=== PATIENT | male | born 1965 ===

== ENCOUNTER 2017-06-28 23:54 | Inpatient (IN) | payer OTHER ==
[2017-06-29 00:26] LABS: #Basophils 0.1 thou/uL (0.0-0.2); #Lymphocytes 1.8 thou/uL (1.20-3.40); #Monocytes 1.5 thou/uL (0.11-0.59); #Neutrophils 9.9 thou/uL (1.40-6.50); %Basophils 0.5 % (0.0-1.0); %Eosinophils 0.3 % (0.0-10.0); %Lymphocytes 13.9 % (21.0-51.0); Hematocrit 42.8 % (42.0-52.0); Mean Platelet Volume 9.2 fL (7.4-10.4); Red Blood Cell (RBC) Count 5.28 mill/uL (4.70-6.10); White Blood Cell (WBC) Count 13.3 thou/uL (4.8-10.8)
[2017-06-29] MEDS ORDERED: Acetaminophen 500 MG TAB ONE (00:38)
[2017-06-29 01:07] LABS: ALT (SGPT) Less than 7 U/L (8-55); AST (SGOT) 15 U/L (5-34); Alkaline Phosphatase 57 U/L (40-150); Anion Gap 15 mmol/L (10-20); BUN (Urea Nitrogen) 23 mg/dL (8.4-25.7); Bilirubin, Total 0.3 mg/dL (0.2-1.2); Calc. Creatinine Clearance 0 mL/min (70-130); Calcium 11.1 mg/dL (7.8-10.44); Carbon Dioxide 25 mmol/L (22-29); Chloride 99 mmol/L (98-107); Estimated GFR-MDRD Greater than 90; Globulin 4.4 g/dL (2.4-3.5); Protein, Total 8.3 g/dL (6.0-8.3)
[2017-06-29] MEDS ORDERED: cefTRIAXone\\ROCEPHIN 500 MG VIAL ONE (01:23)
[2017-06-29 01:24] LABS: Bilirubin Small (Negative); Blood, Urine Negative (Negative); Glucose, Urine (Dipstick) Negative (Negative); Ketone, Urine 15 mg/dL (Negative); Nitrite Negative (Negative); Protein, Urine (Dipstick) 30 mg/dL (Neg-Trace)
[2017-06-29 01:27] LABS: Bacteria/HPF None Seen HPF (None Seen); Squamous Epithelial 0-3 HPF (0-3)
[2017-06-29 01:35] LABS: Hyaline Casts/LPF 0-3 HYALINE CAST LPF (0-3 Hyaline); Oval Fat Bodies/HPF None Seen HPF (None Seen); RBC/HPF 0-3 HPF (0-3); Renal Epithelial 0-3 HPF (0-3); Sperm/HPF None Seen HPF (None Seen); Transitional Epithelial NONE SEEN HPF (0-3); Trichomonas/HPF None Seen HPF (None Seen); Yeast-All Forms None Seen HPF (None Seen)
[2017-06-29] MEDS ORDERED: ISOVUE-370 76%-LOCM 1 ML ONE (02:06)
[2017-06-29] MEDS ORDERED: Ondansetron HCl/PF 4 MG/2 ML Vial ONE ×2 (02:46→14:12)
[2017-06-29] MEDS ORDERED: Sodium Chloride 0.9% 1,000 ML IV SCH (03:18)
[2017-06-29 04:09] VITALS: BMI 18.8
[2017-06-29] MEDS ORDERED: Potassium Chloride 40 MEQ in Sodium Chloride 0.9% 500 ML IVPB SCH (05:00)
[2017-06-29] MEDS: Sodium Chloride 0.9% 1,000 ML IV SCH ×2 (05:24→17:22)
[2017-06-29 05:52] LABS: PTT 32.8 SEC (22.9-36.1); Prothrombin Time 14.1 SEC (12.0-14.7)
[2017-06-29] MEDS: Piperacillin/Tazobactam 3.375 GM, Admixture Fee 1 EACH in Sodium Chloride 0.9% 100 ML IVPB SCH ×3 (05:59→17:22)
[2017-06-29 08:20] LABS: #Eosinphils 0.1 thou/uL (0.0-0.7); #Monocytes 1.7 thou/uL (0.11-0.59); #Neutrophils 7.6 thou/uL (1.40-6.50); %Basophils 0.2 % (0.0-1.0); %Eosinophils 0.5 % (0.0-10.0); %Lymphocytes 17.5 % (21.0-51.0); %Monocytes 14.6 % (0.0-10.0); Hematocrit 35.8 % (42.0-52.0); Mean Platelet Volume 8.2 fL (7.4-10.4); Red Blood Cell (RBC) Count 4.38 mill/uL (4.70-6.10); White Blood Cell (WBC) Count 11.3 thou/uL (4.8-10.8)
--- NOTE | 2017-06-29 08:22 | HP-2 ---
DATE OF ADMISSION: 06/29/2017 CODE STATUS: FULL. PRIMARY CARE PHYSICIAN: Dr. Pineda. ATTENDING: Dr. Robertson. RESIDENT: Lauro Calyton MD HISTORIAN: Outreach Representative who just took over the care of this patient on Friday, did not know him prior to this. Patient has moderate intellectual disability and is unable to provide any history. CHIEF COMPLAINT: Nausea and vomiting. HISTORY OF PRESENT ILLNESS: Herman Sage is a 52-year-old male with past medical history of moderate intellectual disability, chronic nephrolithiasis and history of hepatitis B, who presents with nausea and vomiting and abdominal pain. Patient recently had surgery for nephrolithiasis and was staying at some sort of a nursing facility. He recently returned to his normal place of stay where he lives and is able to get assistance on Friday. Patient's buzzle buffer states that since Friday she has not noticed that the patient has had any bowel movements. He has also been unable to tolerate any p.o. intake. They have been attempting to give him stool softeners and laxatives, but the patient has been unable to tolerate these as well. The patient's buzzle buffer states that the vomitus is nonnonbilious and nonbloody. In the ER, the patient received 2 liters of normal saline, 1 gram of ceftriaxone, 750 mg of levofloxacin, and Tylenol. PAST MEDICAL HISTORY: 1. History of hepatitis B. 2. Chronic nephrolithiasis. 3. Moderate intellectual disability. 4. Blindness. 5. Hyperlipidemia. PAST SURGICAL HISTORY: Unable to obtain full history due to unreliable historians, but patient's buzzle buffer says that patient had recent surgery for kidney stones. ALLERGIES: No known drug allergies. MEDICATIONS: 1. Combigan ophthalmic solution twice daily. 2. Depakote 500 mg oral at bedtime. 3. Lipitor 20 mg p.o. at bedtime. 4. Risperdal 3 mg p.o. at bedtime. 5. Invega 9 mg every 24 hours one tablet p.o. at night. 6. Ensure liquid nutritional supplement 3 times a day between meals. 7. Latanoprost 1 drop in each eye at bedtime. 8. Tamsulosin 0.4 mg p.o. every day. 9. Benztropine mesylate 2 mg p.o. twice daily. 10. Ammonium lactate once daily to affected feet. 11. Dorzolamide HCL 2% ophthalmic solution one drop in each eye 3 times daily. 12. Pyridium 200 mg p.o. every 8 hours p.r.n. 13. Colace 100 mg p.o. b.i.d. 14. Ferrous sulfate 325 mg p.o. daily. 15. Magnesium oxide 400 mg p.o. b.i.d. 16. Naproxen 500 mg p.o. b.i.d. FAMILY HISTORY: Unable to obtain. SOCIAL HISTORY: Per patient's buzzle buffer, the patient dips smokeless tobacco and does not use any alcohol or drugs. REVIEW OF SYSTEMS: Difficult to obtain due to poor historians; but, general: Positive for fevers, chills. Positive for appetite change because he has not been able to keep anything down and has not been as hungry and has also had a 30 -pound weight loss over the last few months. Eyes: He is blind. Denies eye pain. ENT: No nasal congestion, rhinorrhea, or sore throat. Respiratory: No cough, congestion, or shortness of breath. Cardiovascular: No chest pain, palpitations, edema, PND, or orthopnea. Gastrointestinal: Positive for nausea , vomiting, and constipation. Denies diarrhea or GI bleeding. Genitourinary: Denies dysuria, incontinence, or polyuria. Skin: Denies rashes, lesions, or jaundice. Musculoskeletal: Denies pain, tenderness, stiffness, swelling, or arthritis. Neurologic: Denies weakness, numbness, syncope, or seizures. Psychiatric: Denies anxiety or depression. PHYSICAL EXAMINATION: VITAL SIGNS: Blood pressure is 118/68, pulse 116, respiratory rate 21, T-max 100.3, pulse oximetry 97% on room air, current weight 50 kilograms. GENERAL: Patient is alert and oriented x2, in no acute distress, very thin, does not appropriately interact due to moderate intellectual disability. He is able to answer questions with sounds, but really unable to answer questions correctly with the exception of his name and where he is at. Patient's buzzle buffer states that this is his baseline. EYES: Conjunctivae within normal limits. Pupils were not reactive to light. ENT: The patient has poor dentition. Tympanic membranes are pearly thompson without bulging or erythema. Nasal mucosa and oropharynx within normal limits. NECK: Supple without lymphadenopathy or thyromegaly. CARDIOVASCULAR: Regular rate and rhythm. No murmurs or gallops. RESPIRATORY: Normal effort, no retractions. LUNGS: Clear to auscultation bilaterally. SKIN: Warm and dry without cyanosis or lesions. ABDOMEN: Distended, right-sided mass was present. Diffuse tenderness to palpation. EXTREMITIES: No cyanosis or edema. MUSCULOSKELETAL: The patient is cachectic, but has full range of motion. NEUROLOGICAL: No focal deficits. Sensation is within normal limits. LABORATORY DATA: White blood cell count 13.3, hemoglobin 13.7, hematocrit 42.8 , platelets 311. Sodium 136, potassium 3.1, chloride 99, bicarbonate 25, BUN 23 , creatinine 0.74. glucose 145, calcium 11.1, total protein 8.3, albumin 3.9, total bilirubin 0.3, AST 15, ALT less than 7, alkaline phosphatase 57, lactic acid 1.0. UA was significant for 30 protein, small leukocyte, 15 ketones, red blood cells 0 to 3, white blood cell 4 to 6. IMAGING: CT of the abdomen and pelvis findings concerning for colon adenocarcinoma with mesenteric and retroperitoneal adenopathy. ASSESSMENT AND PLAN: 1. Herman Sage is a 52-year-old male with past medical history of hepatitis B , chronic nephrolithiasis, and moderate intellectual disability, who presents with nausea, vomiting, and constipation for 5 days. 2. Large bowel obstruction secondary to mass. Consult Surgery in the morning. Start Zosyn due to elevated white blood cell count, decompression with NG tube , IV fluids at 75 mL an hour. Blood and urine cultures pending. Check CEA. 3. Colonic mass. Consult Oncology in the morning. Check CEA. We will need to get family contact information to get family involved. 4. Hypercalcemia, possibly secondary to mass and possible metastasis. IV fluids and continue to monitor. 5. Moderate intellectual disability appears to be at baseline per buzzle buffer. 6. Chronic hepatitis B. LFTs normal. Check coag studies. 7. Hyperlipidemia. We will med rec and start home medications. 8. Code status is FULL at this point. We will contact family members. Disposition and length of hospital stay: 2 to 3 days. Symptomatic medication will be provided. History and physical exam as well as management have been discussed with Dr. Robertson. HUSSEIN
--- NOTE | 2017-06-29 08:43 | RAD ---
ABDOMEN 1 VIEW: Date: 06/29/17 HISTORY: Abdominal pain. Nasogastric tube placement. FINDINGS/IMPRESSION: Nasogastric tube descends to the left upper quadrant with the proximal port at the level of the GE j unction. Please consider advancing tube approximately 5.0 cm for better positioning. Contrast within the urinary system is consistent with recent CT. There is gaseous distention of the partially visualized bowel. The pelvis is excluded from the image. POS: SVETLANA
[2017-06-29 08:53] LABS: Anion Gap 12 mmol/L (10-20); BUN (Urea Nitrogen) 19 mg/dL (8.4-25.7); Calc. Creatinine Clearance 101 mL/min (70-130); Calcium 9.4 mg/dL (7.8-10.44); Carbon Dioxide 23 mmol/L (22-29); Chloride 105 mmol/L (98-107); Estimated GFR-MDRD Greater than 90
--- NOTE | 2017-06-29 08:54 | CT ---
PRELIMINARY REPORT/[facility]/EMERGENCY AFTER HOURS PROCEDURE: EXAM: CT Abdomen and Pelvis With Intravenous Contrast CLINICAL HISTORY: 52 years old, male; Pain; Abdominal pain; Generalized; Prior surgery; Patient HX: Pt from nursing [facility] with persistent vomiting and abdominal pain. Pt with recent abd surgery last month. Gallstone SX recently TECHNIQUE: Axial computed tomography images of the abdomen and pelvis with intravenous contrast. Coronal reform atted images were created and reviewed. COMPARISON: No relevant prior studies available. FINDINGS: Limitations: Motion artifacts. Lower thorax: Bibasilar linear atelectasis. ABDOMEN: Liver: Unremarkable. No mass. Gallbladder and bile ducts: Although the clinical history stated recent cholecystectomy, the gallbla dder is still visualized. No ductal dilation. Pancreas: Unremarkable. No mass. No ductal dilation. Spleen: Unremarkable. No splenomegaly. Adrenals: Unremarkable. No mass. Kidneys and ureters: There are bilateral hypodense lesions of the kidneys of various sizes with the largest measuring 1.7 cm the right kidney. There are not clearly simple cysts and may be related to volume averaging. Followup. Stomach and bowel: There is a large heterogeneous mass of the left pelvis anteriorly measuring 6.7 x 5.6 cm. There is adjacent mesenteric fat stranding. ? Mesenteric nodule, image 52 Series 2. It appe ars to be associated with colon of splenic flexure. The bowel loop distally and is collapsed. No muc osal thickening. Appendix: No findings to suggest acute appendicitis. PELVIS: Bladder: Unremarkable. No mass. Reproductive: Unremarkable as visualized. ABDOMEN and PELVIS: Intraperitoneal space: Small amount of free fluid within the low pelvis. No free air. Bones/joints: No acute fracture. No dislocation. Soft tissues: Unremarkable. Vasculature: Unremarkable. No abdominal aortic aneurysm. Lymph nodes: There are multiple enlarged retroperitoneal nodes. There are prominent and probable enl arged mesenteric nodes. IMPRESSION: Findings are concerning for colon carcinoma with mesenteric and retroperitoneal adenopathy associate d with bowel obstruction. Findings of possible adjacent peritoneal nodules concerning for peritoneal carcinomatosis. Although the clinical history stated recent cholecystectomy, the gallbladder is sti ll visualized. Findings were discussed over the telephone with MARITZA Giron on 06/29/2017 1:36 AM POACHER OPERATOR. Thank you for allowing us to participate in the care of your patient. Dictated and Authenticated by: Alejandra Ag DO 06/29/2017 1:44 AM Central Time ([place] \T\ [place]) FINAL REPORT EMERGENCY AFTER HOURS CT ABDOMEN AND PELVIS WITH IV CONTRAST: Date: 06/29/17 Time: 0100 hours HISTORY: Abdominal pain. COMPARISON: 10/17/16. FINDINGS: Findings agree with the preliminary report by Rachel. High grade obstruction of the colon near the spl enic flexure appears to result from a heterogeneous mass, favored to arise from the colon itself. Th e left colon beyond this point is decompressed. There is bulky retroperitoneal adenopathy suggesting metastatic disease. No liver masses are apparent. POS: KAYLYNN
[2017-06-29] MEDS: Ondansetron HCl/PF 4 MG/2 ML Vial IVP PRN (09:33)
--- NOTE | 2017-06-29 10:10 | RAD ---
CHEST 1 VIEW: Date: 06/29/17 HISTORY: Cough and fever. COMPARISON: 03/01/17. FINDINGS: Cardiac silhouette is magnified by projection. Pulmonary vasculature is unremarkable. Mediastinum is midline. There is no lobar consolidation or evidence of pneumothorax. quality assurance monitor chassis leads overlie the chest. IMPRESSION: No active cardiopulmonary abnormalities are demonstrated. POS: [facility]
[2017-06-29] MEDS ORDERED: Fentanyl 100 MCG/2 ML VIAL ONE ×2 (13:36→15:02)
[2017-06-29] MEDS ORDERED: Lidocaine 2% PF 10 ML AMP (For Epidural Use) ONE (14:12)
[2017-06-29] MEDS ORDERED: PHENYLEPHRINE-NS 100 MCG/ML 10 ML SYRINGE ONE (14:12)
[2017-06-29] MEDS ORDERED: Glycopyrrolate 0.2 MG/ML 5 ML SYRINGE ONE (14:12)
[2017-06-29] MEDS ORDERED: Propofol 200 MG/20 ML VIAL ONE (14:12)
[2017-06-29] MEDS ORDERED: Ketorolac Tromethamine 30 MG/ML VIAL ONE (14:12)
--- NOTE | 2017-06-29 14:19 | CON ---
DATE OF CONSULTATION: 06/29/2017 REQUESTING PHYSICIAN: Dr. Bansal. HISTORY OF PRESENT ILLNESS: This is a 52-year-old man with significant intellectual disability who is a resident of an extended care facility. The patient was brought to the hospital for workup of a sudden onset abdominal pain associated with multiple episodes of nausea, vomiting, and admits to nuñez ve any bowel movement in 4 days. The patient is unable to give history. Apart from the nursing guilherme e indicates multiple attempts to resolve the chronic constipation with various stool softeners and l axatives. Upon evaluation in the emergency department, the patient was hypotensive and received flu id boluses and admitted today Medicine Service. At the time of my evaluation, the patient is confus ed and he is able to answered short questions by one word answer. He moves all extremities and does indeed follow commands. The patient apparently has had over 30-pound weight loss in a relatively s hort period of time. PAST MEDICAL HISTORY: Significant for moderate intellectual disability, hyperlipidemia, nephrolithi asis, blindness and a history of hepatitis B. He also has a history of glaucoma, resulting in blind ness. He has had polymicrobial bacteremia in the past including Klebsiella and MRSA. PAST SURGICAL HISTORY: Significant for nephrolithotripsy and urethral stent placement as well as a cervical spine fusion. ALLERGIES: The patient has no known drug allergies. FAMILY HISTORY: According to chart review, family history is unknown. SOCIAL HISTORY: The patient is a resident of a alf. There is apparently no history of cig arette smoking, ethanol or illicit drug abuse history. PREHOSPITAL MEDICATIONS: Include acetazolamide 500 mg p.o. b.i.d., atorvastatin 20 mg p.o. at [facility], Cogentin 2 mg p.o. b.i.d., brimonidine tartrate 0.2% ophthalmic solution 1 drop to each eye b.i. d., Combigan 0.2% /0.5% 1 drop to each eye b.i.d., Depakote 1000 mg p.o. daily, ferrous sulfate 325 mg p.o. daily, Invega 9 mg p.o. q.p.m., Flomax 0.4 mg p.o. daily and various stool softeners. REVIEW OF SYSTEMS: Could not be obtained due to this patient's depressed mental status. PHYSICAL EXAMINATION: GENERAL: A 52-year-old man with intellectual disorder who is in no acute distress at the time of my evaluation. VITAL SIGNS: Include blood pressure 121/78, pulse 103, respiration 18, temperature 97.8 degrees Fah renheit, oxygen saturation is 96% on room air. HEENT: Reveals normocephalic and atraumatic. HEART: Reveals regular rate with sinus tachycardia. No murmurs or gallops auscultated. LUNGS: Clear to auscultation bilaterally. Breathing is regular and unlabored. ABDOMEN: Soft and protuberant. He has mild to moderate tenderness to palpation with no gross rebou nd tenderness present. He has 5 x 8 cm palpable mid to left upper quadrant abdominal mass. Liver a nd spleen are nonpalpable below costal margins. PERTINENT LABORATORY DATA: Includes CBC with 11,300 white blood cells, hemoglobin 11.2, hematocrit is 35.8, platelet count is 252,000. Metabolic profile: Sodium 137, potassium is 3.1, chloride is 1 05, bicarbonate 23, BUN 19, creatinine 0.65, glucose 105. CEA is markedly elevated at 25.66. I hav e personally reviewed the CT scan of the abdomen and pelvis this reveals 6.7 x 5.6 cm mass in the le ft colon with multiple intraperitoneal or retroperitoneal lymphadenopathy. Mesenteric nodes noted s uspicious for carcinomatosis. There is a significant amount of small and large bowel dilatation pro ximal to the obstructing colonic mass. IMPRESSION: 1. 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 2. Probable carcinomatosis. 3. History of moderate intellectual disorder. RECOMMENDATIONS: Exploratory laparotomy with partial colectomy and end colostomy versus a diverting loop transverse colostomy. I would discuss the above case with local ethics as there is no next of kin available for family discussion regarding obtaining consent for this operative intervention as the patient is unable to participate in his care. Thank you again, Dr. Bansal for allowing me the opportunity to participate in the care of this patient.
[2017-06-29] MEDS ORDERED: Promethazine HCl 25 MG/ML VIAL IM PRN (16:01)
[2017-06-29] MEDS ORDERED: Ondansetron HCl/PF 4 MG/2 ML Vial IVP PRN (16:01)
[2017-06-29] MEDS ORDERED: Promethazine HCl 25 MG/ML VIAL SLOW IVP PRN (16:01)
--- NOTE | 2017-06-29 18:29 | OP ---
DATE OF OPERATION: 06/29/2017 PREOPERATIVE DIAGNOSES: 1. Mass likely mid right colon neoplasm. 2. Large bowel obstruction secondary to colon neoplasm. POSTOPERATIVE DIAGNOSES: 1. Mass likely mid right colon neoplasm. 2. Large bowel obstruction secondary to colon neoplasm. OPERATIONS PERFORMED: 1. Mini laparotomy. 2. Loop transverse colostomy. SURGEON: Srinivasa Spencer D.O. ANESTHESIA: General endotracheal. ESTIMATED BLOOD LOSS: 100 mL. FLUIDS GIVEN: 1200 mL crystalloids. SPONGE AND INSTRUMENT COUNT: Certified as correct x2. COMPLICATIONS: None apparent. INDICATIONS FOR OPERATION: This is a 52-year-old man with history of significant intellectual disab ility who is a resident of a snf. The patient presented with inability to tolerate oral in take associated with no bowel movement for several days. CT scan of the abdomen and pelvis was annabelle rkable for obstructing left colon mass associated with significant intraperitoneal and retroperitone al lymphadenopathy. The patient was brought to the operating room for loop transverse colostomy. DESCRIPTION OF PROCEDURE: No family is around, it was decided through the ethics committee and primary service that the best c ourse of treatment for this patient given the advanced nature of the colonic disease is loop transve rse colostomy for relief of the large bowel obstruction. The patient was brought to the operating r oom for that purpose. Following general anesthesia, the previous Louie catheter was placed to bedsi de drain. Nasogastric tube was placed to wall suction. Abdomen is sterilely prepped and draped in the usual fashion. A mini laparotomy incision is made from approximately 3 cm inferior to the xipho id process in the midline using a #10 scalpel. The incision is carried through the subcutaneous tis sues maintaining hemostasis using thermocautery. Fascia was incised in midline exposing the periton eum beneath which was grasped x2 with hemostats. The peritoneal cavity was entered using Metzenbaum scissors. We used a small Finney retractors to gain exposure. With traced the transverse colo n from the inferior aspect of the omentum grasping the transverse colon, bringing this up into the o perative field. This was secured with a bridge. Fascia was then approximated around the exit of th e transverse colon using interrupted sutures of 0 Vicryl. Because this patient is acutely obstructe d, we decided to proceed with maturation of the colostomy. To achieve this, the colon was opened al shefali the tenia using cautery. A functional Cariadd colostomy was then perfected using interrupted sut ures of 2-0 chromic. Ostomy appliance was then put in place. The patient tolerated the operation w ithout any apparent complication and was returned to recovery room in satisfactory condition.
[2017-06-30] MEDS: Piperacillin/Tazobactam 3.375 GM, Admixture Fee 1 EACH in Sodium Chloride 0.9% 100 ML IVPB SCH ×4 (00:45→20:45)
[2017-06-30] MEDS: Acetaminophen 500 MG TAB PO SCH ×4 (03:23→21:22)
[2017-06-30] MEDS: Ketorolac Tromethamine 30 MG/ML VIAL IVP SCH ×3 (06:02→17:58)
[2017-06-30 08:40] LABS: Hematocrit 29.1 % (42.0-52.0); Mean Platelet Volume 8.5 fL (7.4-10.4); Red Blood Cell (RBC) Count 3.48 mill/uL (4.70-6.10)
[2017-06-30 08:46] LABS: Anion Gap 15 mmol/L (10-20); BUN (Urea Nitrogen) 20 mg/dL (8.4-25.7); Calc. Creatinine Clearance 103 mL/min (70-130); Calcium 8.5 mg/dL (7.8-10.44); Carbon Dioxide 17 mmol/L (22-29); Chloride 112 mmol/L (98-107); Estimated GFR-MDRD Greater than 90
[2017-06-30] MEDS ORDERED: Potassium Chloride 40 MEQ in Sodium Chloride 0.9% 250 ML 250 ML IVPB SCH (09:00)
[2017-06-30] MEDS ORDERED: FLU VACC QS2017-18 36 mo. & older 0.5 ML SYRINGE IM ONE (09:00)
[2017-06-30] MEDS: Sodium Chloride 0.9% 1,000 ML IV SCH ×2 (09:06→18:25)
[2017-06-30] MEDS: Enoxaparin Sodium 40 MG/0.4 ML SYRINGE SC SCH ×2 (09:07→12:04)
[2017-06-30 09:11] LABS: Band 16 % (5-11); Hypochromia SLIGHT = 6-15 cells (100X) (0-5/hpf); Neutrophil 69 % (42-75)
--- NOTE | 2017-06-30 09:19 | PDOC.FM ---
- Subjective Subjective: No acute events overnight, hospital day 2. Approximately 750 put out of ostomy. Pt has no complaints at this time. - Objective Vital Signs & Weight: Vital Signs (12 hours) Temp Pulse Resp BP Pulse Ox 06/30/17 08:00 97.9 F 89 18 109/61 94 L 06/30/17 05:08 98.2 F 110 H 18 112/73 95 06/30/17 00:00 98.2 F 108 H 18 123/76 94 L I&O: 06/29/17 06/30/17 07/01/17 06:59 06:59 06:59 Intake Total 1900 Output Total 1500 Balance 400 Result Diagrams: 06/30/17 08:17 06/30/17 08:17 <Nando Barajas - Last Filed: 06/30/17 09:17> - Objective Vital Signs & Weight: Vital Signs (12 hours) Temp Pulse Resp BP Pulse Ox 06/30/17 08:00 97.9 F 89 18 109/61 94 L 06/30/17 05:08 98.2 F 110 H 18 112/73 95 06/30/17 00:00 98.2 F 108 H 18 123/76 94 L I&O: 06/29/17 06/30/17 07/01/17 06:59 06:59 06:59 Intake Total 1900 Output Total 1500 Balance 400 Result Diagrams: 06/30/17 08:17 06/30/17 08:17 <Lon Pina - Last Filed: 06/30/17 11:22> Phys Exam - Physical Examination Constitutional: NAD HEENT: sclera anicteric poor dentition Neck: no nodes, no JVD Respiratory: no wheezing, no rales, no rhonchi, clear to auscultation bilateral Cardiovascular: RRR, no significant murmur, no rub Gastrointestinal: soft, positive bowel sounds transverse ostomy in place Musculoskeletal: no edema, pulses present Neurological: non-focal mod mrdd Skin: cap refill <2 seconds <Nando Barajas - Last Filed: 06/30/17 09:17> Dx/Plan (1) Colonic mass Code(s): K63.9 - DISEASE OF INTESTINE, UNSPECIFIED Status: Acute (2) Large bowel obstruction Code(s): K56.609 - UNSP INTESTNL OBST, UNSP TO PARTIAL VERSUS COMPLETE OBST Status: Acute (3) Anemia Code(s): D64.9 - ANEMIA, UNSPECIFIED Status: Acute (4) Hypokalemia Code(s): E87.6 - HYPOKALEMIA Status: Acute - Plan Plan: s/p resection w/ transverse loop ostomy, draining approx 750 overnight, continue monitoring is/os surgery on board, appreciate recs anemia, Hgb 9.3 down from 13.7, will trend. VSS hypokalemia: K= replaced, repeat am bmp <Nando Barajas - Last Filed: 06/30/17 09:17> Attending Addendum - Attending Addendum I personally evaluated the patient and discussed the management with Dr. Barajas I agree with the History, Examination, Assessment and Plan documented above with any addition or exceptions noted below. Patient presents with left colon obstruction from cancer. It is likely stage IV pending pathology. He is doing better this am after getting resection and ostomy. We will do postop care and consult Oncology. He is not likely to be a good candidate for aggressive care. He is moderately low mental functioning and may not be able to consent. <Lon Pina - Last Filed: 06/30/17 11:22>
[2017-06-30] MEDS: Ondansetron HCl/PF 4 MG/2 ML Vial IVP PRN (14:08)
--- NOTE | 2017-06-30 16:02 | PRG-2 ---
DATE OF SERVICE: 07/10/2017 ATTENDING PHYSICIAN: Dr. Srinivasa Spencer. SUBJECTIVE: This is a 52-year-old male with significant intellectual disability , who is a resident of an extended care facility. He is postoperative day #1, status post mini laparotomy and loop transverse colostomy. The patient was found to have stage 4 colon neoplasm with carcinomatosis. Patient is stable this morning. No acute events overnight. He had approximately 1025 cc out of colostomy. The patient has no complaints at this time. OBJECTIVE: VITAL SIGNS: Blood pressure 104/67, pulse 89, respiratory rate 18, oxygen saturation 93% on room air, temperature 98.0 degrees Fahrenheit. HEENT: Sclerae are anicteric. Patient does have poor dentition. Atraumatic and normocephalic head. RESPIRATORY: No wheezing, no rales, and no rhonchi. Clear to auscultation bilaterally. No increased respiratory effort. CARDIOVASCULAR: Regular rate and rhythm. No significant murmur. GASTROINTESTINAL: Soft, nondistended. Transverse ostomy in place. NEUROLOGIC: No focal deficits noted. LABORATORY FINDINGS: CBC reveals white blood cell count 10.0, hemoglobin 9.3, hematocrit 29.1, platelet count of 221. BMP reveals sodium 141, potassium 3.3, chloride 112, bicarbonate 17, BUN 20, creatinine 0.64. There are no images to review this morning. ASSESSMENT: 1. Mass, likely mid right colon neoplasm. 2. Large bowel obstruction secondary to colon neoplasm. 3. Day #1, status post mini laparotomy and loop transverse colostomy. 4. Intellectual disability. 5. Hypokalemia. PLAN: The patient is currently postoperative day #1. Continue with pain management. Patient has had approximately 1025 mL out of colostomy. Operative procedure primarily palliative in nature. Potassium was replaced. Other medical conditions being managed by the primary team. We will continue to see the patient during the duration of his stay. The patient was seen and evaluated by Dr. Srinivasa Spencer. HUSSEIN
[2017-07-01] MEDS: Ketorolac Tromethamine 30 MG/ML VIAL IVP SCH ×4 (00:03→18:49)
[2017-07-01] MEDS: Piperacillin/Tazobactam 3.375 GM, Admixture Fee 1 EACH in Sodium Chloride 0.9% 100 ML IVPB SCH ×4 (00:17→18:52)
[2017-07-01] MEDS: Acetaminophen 500 MG TAB PO SCH ×5 (02:35→21:36)
[2017-07-01] MEDS: Ondansetron HCl/PF 4 MG/2 ML Vial IVP PRN ×2 (08:47→14:23)
[2017-07-01] MEDS: Sodium Chloride 0.9% 1,000 ML IV SCH ×2 (08:48→18:55)
[2017-07-01] MEDS: Enoxaparin Sodium 40 MG/0.4 ML SYRINGE SC SCH (08:50)
[2017-07-01 09:06] LABS: Anion Gap 11 mmol/L (10-20); BUN (Urea Nitrogen) 10 mg/dL (8.4-25.7); Calc. Creatinine Clearance 126 mL/min (70-130); Calcium 8.5 mg/dL (7.8-10.44); Carbon Dioxide 21 mmol/L (22-29); Chloride 109 mmol/L (98-107); Estimated GFR-MDRD Greater than 90; Magnesium 1.6 mg/dL (1.6-2.6)
--- NOTE | 2017-07-01 09:10 | PDOC.FM ---
- Subjective Subjective: No acute events overnight. Post op day 2. Pts reports his abdomen is hurting " a little." Pt is tolerating po and has put out 1550 of dark stool/liquid from ostomy. - Objective Vital Signs & Weight: Vital Signs (12 hours) Temp Pulse Resp BP Pulse Ox 07/01/17 08:30 98.3 F 83 18 116/71 07/01/17 04:00 97.9 F 91 18 100/66 94 L 07/01/17 00:00 98.7 F 94 18 114/75 97 Weight Admit Weight 53.07 kg Weight 53.07 kg I&O: 06/30/17 07/01/17 07/02/17 06:59 06:59 06:59 Intake Total 1900 1400 Output Total 1500 2450 Balance 400 -1050 Result Diagrams: 06/30/17 08:17 07/01/17 08:23 <Nando Barajas - Last Filed: 07/01/17 09:07> - Objective Vital Signs & Weight: Vital Signs (12 hours) Temp Pulse Resp BP Pulse Ox 07/01/17 08:30 98.3 F 83 18 116/71 07/01/17 04:00 97.9 F 91 18 100/66 94 L 07/01/17 00:00 98.7 F 94 18 114/75 97 Weight Admit Weight 117 lb Weight 117 lb I&O: 06/30/17 07/01/17 07/02/17 06:59 06:59 06:59 Intake Total 1900 1400 Output Total 1500 2450 Balance 400 -1050 Result Diagrams: 06/30/17 08:17 07/01/17 08:23 <Lon Pina - Last Filed: 07/01/17 11:11> Phys Exam - Physical Examination Constitutional: NAD HEENT: sclera anicteric poor dentition Neck: no nodes, no JVD Respiratory: no wheezing, no rales, no rhonchi, clear to auscultation bilateral Cardiovascular: RRR, no significant murmur, no rub Gastrointestinal: soft, non-tender, no distention, positive bowel sounds Left bowel sounds scant Musculoskeletal: no edema, pulses present Neurological: non-focal, moves all 4 limbs <Nando Barajas - Last Filed: 07/01/17 09:07> Dx/Plan (1) Colonic mass Code(s): K63.9 - DISEASE OF INTESTINE, UNSPECIFIED Status: Acute (2) Large bowel obstruction Code(s): K56.609 - UNSP INTESTNL OBST, UNSP TO PARTIAL VERSUS COMPLETE OBST Status: Acute (3) Anemia Code(s): D64.9 - ANEMIA, UNSPECIFIED Status: Acute (4) Hypokalemia Code(s): E87.6 - HYPOKALEMIA Status: Acute - Plan Plan: recheck AM BMP and mag, results pending; replace as indicated pain control per surgery recs diet advance per surgery recs pt will be going back to long-term upon discharge vss, no acute events overnight, ostomy draining w/ 1550 of dark/black liquid and semi-solid stool will need ethics and palliative if unable to reach family regarding pts code status and goals of care <Nando Barajas - Last Filed: 07/01/17 09:07> Attending Addendum - Attending Addendum I personally evaluated the patient and discussed the management with Dr. Barajas I agree with the History, Examination, Assessment and Plan documented above with any addition or exceptions noted below. Patient is stable postop. He is not eating yet however. Best option for him is Hospice, but he is not able to consent due to low intellectual functioning. We are trying to locate family or a guardian. Ethics consult is pending as well. <Lon Pina - Last Filed: 07/01/17 11:11>
[2017-07-01] MEDS ORDERED: Potassium Chloride 20 MEQ TAB PO SCH (09:30)
[2017-07-01] MEDS ORDERED: Magnesium Oxide 400 MG TAB PO SCH (09:30)
--- NOTE | 2017-07-01 15:11 | PQF ---
CLINICAL DOCUMENTATION IMPROVEMENT CLARIFICATION FORM: ICD-10 Updated PLEASE DO AN ADDENDUM TO THE PROGRESS NOTE WITH ANY DOCUMENTATION UPDATES OR ADDITIONS AND CARRY THROUGH TO DC SUMMARY. THANK YOU. Date: 07/01/17 ATTN: Dr. Nando Barajas/ Attending Dr. Lon Pina Please exercise your independent, professional judgment in responding to the clarification form. Clinical indicators are provided on the bottom of this form for your review Please check appropriate box(s): [ x ] Protein Calorie Malnutrition: [ ] Mild [ x ] Moderate [ ] Severe [ ] Other Malnutrition (please specify) __ [ ] Underweight without malnutrition [ x ] Cachexia [ ] Other diagnosis [ ] Unable to determine CLINICAL INDICATORS - SIGNS / SYMPTOMS / LABS H&P: PT HAS HAD A 30-POUND WT LOSS OVER THE LAST FEW MONTHS. PT IS CACHECTIC NUTRITION ASSESS. 06/30: TRIGGERED FOR LOW BMI, DECREASED PO INTAKE & N/V REINFORCED IRONWORKER. BMI 18.8 RISKS: H&P: PT HAS MODERATE INTELLECTUAL DISABILITY. PN 06/30; PRESENTS WITH L COLON OBSTRUCTION FROM CANCER. S/P RESECTION W/ TRANSVERSE LOOP OSTOMY TREATMENT: TAX STAFF ACCOUNTANT CONSULT TRIGGERED FOR LOW BMI. Thank you, Berta (This form is maintained as a part of the permanent medical record) 2014 [employer]. All Rights Reserved Berta Willoughby RN, BSN [email or web address] Office: [phone] [facility]
[2017-07-02] MEDS: Piperacillin/Tazobactam 3.375 GM, Admixture Fee 1 EACH in Sodium Chloride 0.9% 100 ML IVPB SCH ×2 (00:55→06:26)
[2017-07-02] MEDS: Ketorolac Tromethamine 30 MG/ML VIAL IVP SCH ×4 (00:56→17:41)
[2017-07-02] MEDS: Acetaminophen 500 MG TAB PO SCH ×5 (04:05→19:56)
--- NOTE | 2017-07-02 09:11 | PDOC.FM ---
- Subjective Subjective: No acute events overnight. Persistent nausea, occasional vomiting yesterday with po. Pt denies pain, has no complaints. Ostomy functioning properly, normoactive bs on rt. Scant bs on left. Pt has proteion calorie malnutrition 2/ 2 decreased po intake and N/V. Likely cachetic 2/2 abdominal mass, which is presumed adenocarcinoma; however, no biopsies taken. - Objective Vital Signs & Weight: Vital Signs (12 hours) Temp Pulse Resp BP Pulse Ox 07/02/17 07:51 98.6 F 90 16 128/75 95 07/02/17 04:00 98.4 F 83 18 111/76 95 07/02/17 00:00 98.2 F 77 16 124/76 96 Weight Admit Weight 53.07 kg Weight 53.07 kg I&O: 07/01/17 07/02/17 07/03/17 06:59 06:59 06:59 Intake Total 1400 Output Total 2450 2080 Balance -1050 -2079 Result Diagrams: 06/30/17 08:17 07/01/17 08:23 <Nando Barajas - Last Filed: 07/02/17 09:09> - Objective Vital Signs & Weight: Vital Signs (12 hours) Temp Pulse Resp BP Pulse Ox 07/02/17 08:00 98.6 F 90 16 95 07/02/17 07:51 98.6 F 90 16 128/75 95 07/02/17 04:00 98.4 F 83 18 111/76 95 Weight Admit Weight 117 lb Weight 117 lb I&O: 07/01/17 07/02/17 07/03/17 06:59 06:59 06:59 Intake Total 1400 100 Output Total 2450 0 Balance -105 -2079 100 Result Diagrams: 06/30/17 08:17 07/01/17 08:23 <Lon Pina - Last Filed: 07/02/17 12:43> Phys Exam - Physical Examination Constitutional: NAD HEENT: PERRLA, moist MMs poor dentition Neck: no nodes, no JVD Respiratory: no wheezing, no rales, no rhonchi, clear to auscultation bilateral Cardiovascular: RRR, no significant murmur, no rub Gastrointestinal: soft, non-tender, no distention, positive bowel sounds scant bs left Musculoskeletal: no edema, pulses present Neurological: non-focal, moves all 4 limbs Skin: no rash, cap refill <2 seconds <Nando Barajas - Last Filed: 07/02/17 09:09> Dx/Plan (1) Colonic mass Code(s): K63.9 - DISEASE OF INTESTINE, UNSPECIFIED Status: Acute (2) Large bowel obstruction Code(s): K56.609 - UNSP INTESTNL OBST, UNSP TO PARTIAL VERSUS COMPLETE OBST Status: Acute (3) Anemia Code(s): D64.9 - ANEMIA, UNSPECIFIED Status: Acute (4) Hypokalemia Code(s): E87.6 - HYPOKALEMIA Status: Acute - Plan Plan: grant zojan trend bmp/cbc q2d surgery consulted, appreciate recs replace electrolytes prn palliative consulted, appreciate recs family member has been contacted and is attempting to reach other sibling, they will be back to the hospital later this afternoon/evening, need to discuss GOC <Nando Barajas - Last Filed: 07/02/17 09:09> Attending Addendum - Attending Addendum I personally evaluated the patient and discussed the management with Dr. Barajas I agree with the History, Examination, Assessment and Plan documented above with any addition or exceptions noted below. Patient is now postop day 3. We are trying to get him to eat. His sister was here yesterday and another sister is coming today. We can only offer him hospice /palliative care. We will discuss this with family when we can. <Lon Pina - Last Filed: 07/02/17 12:43>
[2017-07-02] MEDS: Ondansetron HCl/PF 4 MG/2 ML Vial IVP PRN (09:54)
[2017-07-02] MEDS: Sodium Chloride 0.9% 1,000 ML IV SCH (10:00)
[2017-07-02] MEDS: Enoxaparin Sodium 40 MG/0.4 ML SYRINGE SC SCH (10:33)
--- NOTE | 2017-07-02 11:12 | PRG-2 ---
DATE OF SERVICE: 07/02/2017 ATTENDING PHYSICIAN: Dr. Srinivasa Spencer SUBJECTIVE: This is a 52-year-old male with significant intellectual disability who is a resident of [facility], he is postoperative day #3 status post mini laparotomy and loop transverse colostomy. 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 The patient is stable this morning. No acute overnight events. He had approximately 800 mL out of colostomy. No complaints at this time. OBJECTIVE: VITAL SIGNS: Blood pressure 128/75, pulse 90, respiratory rate of 16, temperature of 98.6 degrees Fahrenheit, oxygen saturation 95% on room air. HEENT: Sclerae are anicteric. The patient has poor dentition. Head is atraumatic and normocephalic. RESPIRATORY: No wheezing, no rales, no rhonchi. Clear to auscultation bilaterally. No increased respiratory effort. Equal rise and fall of chest. CARDIOVASCULAR: Regular rate and rhythm. No significant murmur. GASTROINTESTINAL: Soft and nondistended. Transverse ostomy in place. The patient had response to palpation of abdomen. He made a grunting noise. NEUROLOGIC: No focal deficit was noted. LABORATORY FINDINGS: No labs or imaging to review this morning. ASSESSMENT: 1. Colonic mass, likely right colon neoplasm. 2. Large bowel obstruction secondary to colon neoplasm. 3. Day 3, status post mini laparotomy with loop transverse colostomy. 4. Intellectual disability 5. Hypokalemia, resolved. PLAN: The patient is currently postoperative day #3. We will continue with pain management. The patient had approximately 800 mL out of the colostomy. Operative procedure primarily palliative in nature. Electrolytes have been replaced. Other medical conditions are being managed by primary team. Zosyn was discontinued today. This was not providing any additional benefit. Wound Care will change ostomy today. They are to call the Trauma Service when ready to do so as we will remove the bridge from the loop colostomy at that time. The patient was seen and evaluated by Dr. Srinivasa Spencer at bedside. [facility]
[2017-07-02] MEDS: Ondansetron HCl/PF 4 MG/2 ML Vial IVP SCH ×2 (14:03→19:54)
[2017-07-02] MEDS ORDERED: Potassium Chloride 20 MEQ TAB PO SCH (14:15)
[2017-07-02] MEDS ORDERED: Potassium Chloride 40 MEQ in Sodium Chloride 0.9% 500 ML IVPB SCH (17:15)
[2017-07-02] MEDS: Famotidine/PF 20 mg/2ml Vial SLOW IVP SCH (19:55)
[2017-07-02 22:19] LABS: Mean Platelet Volume 7.3 fL (7.4-10.4); Red Blood Cell (RBC) Count 3.49 mill/uL (4.70-6.10); White Blood Cell (WBC) Count 10.9 thou/uL (4.8-10.8)
[2017-07-02] MEDS ORDERED: MORPHINE 10 MG/ML SYRINGE IV SCH (22:30)
[2017-07-02 22:37] LABS: Band 4 % (5-11); Neutrophil 64 % (42-75)
[2017-07-02 22:46] LABS: Anion Gap 12 mmol/L (10-20); BUN (Urea Nitrogen) 4 mg/dL (8.4-25.7); Calc. Creatinine Clearance 137 mL/min (70-130); Calcium 8.3 mg/dL (7.8-10.44); Carbon Dioxide 21 mmol/L (22-29); Chloride 107 mmol/L (98-107); Estimated GFR-MDRD Greater than 90; Magnesium 1.4 mg/dL (1.6-2.6)
[2017-07-03] MEDS: Sodium Chloride 0.9% 1,000 ML IV SCH (01:00)
[2017-07-03] MEDS: Ketorolac Tromethamine 30 MG/ML VIAL IVP SCH ×4 (01:43→17:04)
[2017-07-03] MEDS: Ondansetron HCl/PF 4 MG/2 ML Vial IVP SCH ×4 (02:37→18:14)
[2017-07-03] MEDS: Acetaminophen 500 MG TAB PO SCH ×4 (04:54→21:02)
[2017-07-03] MEDS: Famotidine/PF 20 mg/2ml Vial SLOW IVP SCH ×2 (07:23→20:24)
[2017-07-03] MEDS: Enoxaparin Sodium 40 MG/0.4 ML SYRINGE SC SCH (07:23)
[2017-07-03] MEDS ORDERED: MAGNESIUM SULFATE IVPB SCH (07:45)
[2017-07-03] MEDS ORDERED: SODIUM CHLORIDE 0.9% IVPB SCH (07:45)
[2017-07-03] MEDS ORDERED: Potassium Chloride 40 MEQ in Premix Bag 1 BAG IVPB SCH (07:45)
[2017-07-03] MEDS ORDERED: Magnesium 2 GM/NS 0.9% 100 ML 2 GM in Premix Bag 1 BAG IVPB SCH (08:00)
[2017-07-03] MEDS ORDERED: Potassium Chloride 40 MEQ, Admixture Fee 1 EACH in Sodium Chloride 0.9% 250 ML 250 ML IVPB SCH (08:00)
--- NOTE | 2017-07-03 10:15 | RAD ---
KUB: Comparison: 06-29-17 History: Vomiting with decreased PO intake. FINDINGS: Single view of the abdomen shows a nonspecific, nonobstructed bowel gas pattern. A radiopaque struct ure projects over the patient's midline of the abdomen. This may be external to the patient and is o f uncertain significance. There is a nonobstructed bowel gas pattern. No free air is appreciated. IMPRESSION: Nonobstructed bowel gas pattern. POS: [facility]
--- NOTE | 2017-07-03 10:43 | PDOC.FM ---
- Subjective Subjective: Pt states he is having abdominal pain, however, unable to quantify. Per tech, still have nausea and vomiting with clear liquids. Possibly 2/2 post op ileus. KUB negative for any acute issue. No acute events overnight. - Objective Vital Signs & Weight: Vital Signs (12 hours) Temp Pulse Resp BP Pulse Ox 07/03/17 07:48 97.8 F 88 18 116/75 96 07/03/17 07:28 98.0 F 84 16 Weight Admit Weight 53.07 kg Weight 53.07 kg I&O: 07/02/17 07/03/17 07/04/17 06:59 06:59 06:59 Intake Total 100 Output Total 2080 1350 Balance -2079 -1250 Result Diagrams: 07/02/17 21:53 07/02/17 21:53 <Nando Barajas - Last Filed: 07/03/17 10:41> - Objective Vital Signs & Weight: Vital Signs (12 hours) Temp Pulse Resp BP Pulse Ox 07/03/17 07:48 97.8 F 88 18 116/75 96 07/03/17 07:28 98.0 F 84 16 Weight Admit Weight 117 lb Weight 117 lb I&O: 07/02/17 07/03/17 07/04/17 06:59 06:59 06:59 Intake Total 100 Output Total 2080 1350 Balance -2079 -1250 Result Diagrams: 07/02/17 21:53 07/02/17 21:53 <Lon Pina - Last Filed: 07/03/17 10:50> Phys Exam - Physical Examination Constitutional: NAD HEENT: PERRLA, moist MMs, sclera anicteric Respiratory: no wheezing, no rales, no rhonchi, clear to auscultation bilateral Cardiovascular: RRR, no significant murmur, no rub Gastrointestinal: soft, non-tender, positive bowel sounds mild distension Musculoskeletal: no edema, pulses present Neurological: non-focal, normal sensation, moves all 4 limbs Deviation from normal: mrdd <Nando Barajas - Last Filed: 07/03/17 10:41> Dx/Plan (1) Colonic mass Code(s): K63.9 - DISEASE OF INTESTINE, UNSPECIFIED Status: Acute (2) Large bowel obstruction Code(s): K56.609 - UNSP INTESTNL OBST, UNSP TO PARTIAL VERSUS COMPLETE OBST Status: Acute (3) Anemia Code(s): D64.9 - ANEMIA, UNSPECIFIED Status: Acute (4) Hypokalemia Code(s): E87.6 - HYPOKALEMIA Status: Acute - Plan Plan: scheduled phenergan for nausea and vomiting, advance diet as tolerated surgery is following, appreciate recommendations kub ordered, daily bmp, daily cbc, monitor is/os hypokalemia, replace mag and K+ regarding pts social situation, will attempt to reach next of kin and address pts diagnosis and prognosis. palliative care has been consulted, appreciate recommendations. <Nando Barajas - Last Filed: 07/03/17 10:41> Attending Addendum - Attending Addendum I personally evaluated the patient and discussed the management with Dr. Barajas I agree with the History, Examination, Assessment and Plan documented above with any addition or exceptions noted below. He is still not eating. His belly is soft. We will try Reglan, but also recheck CBC, CMP to make sure he is not developing an infectious process or other complication. We are still trying to reach family to get help with disposition, Hospice, DNR. <Lon Pina - Last Filed: 07/03/17 10:50>
--- NOTE | 2017-07-03 10:47 | PRG-2 ---
DATE OF SERVICE: 07/03/2017 ATTENDING PHYSICIAN: Urbano Arora M.D. HISTORY OF PRESENT ILLNESS: This is a 52-year-old man with significant intellectual disability. He is a resident of an extended care facility. He is postoperative day #4, status post mini laparotom y and loop transverse colostomy. 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 Patient is stable this morning; however, the nurses report some episodes of emesis. He had no acut e overnight event. Patient has Oluie catheter in place. He had approximately 100 mL out of colosto my. He does complain of abdominal pain. OBJECTIVE: VITAL SIGNS: Blood pressure 116/75, temperature 97.3 degrees Fahrenheit, pulse 88, respiratory rate 18, oxygen saturation 96% on room air. HEENT: Sclerae are anicteric. The patient has poor dentition. Atraumatic and normocephalic head. RESPIRATORY: No wheezing, no rales, no rhonchi. Clear to auscultation bilaterally. No increased r espiratory effort. Equal rise and fall of chest. CARDIOVASCULAR: Regular rate and rhythm. No significant murmurs. GASTROINTESTINAL: Soft, nondistended. Transverse ostomy in place. Patient responds to palpation. Abdomen, complaining of abdominal wall tenderness. NEUROLOGIC: No focal deficit noted. LABORATORY DATA: No labs to report on this morning. The patient had abdominal x-ray performed whic h showed nonobstructive bowel gas pattern. ASSESSMENT: 1. Colonic mass, likely colon neoplasm. 2. Large bowel obstruction secondary to colon neoplasm. 3. Day #4 status post mini laparotomy with loop transverse colostomy. 4. Intellectual disability. 5. Postoperative ileus. PLAN: The patient is currently postoperative #4. We will continue with pain management. The patie nt had approximately 100 mL out of colostomy. The patient likely has postoperative ileus. He is cu rrently on clear liquid diet and will advance diet as tolerated. We will continue to see the patien t until regular diet has been tolerated. Bridge from loop colostomy was removed yesterday. The pat ient was seen and evaluated by Dr. Arora at bedside.
[2017-07-03] MEDS ORDERED: Promethazine HCl 25 MG/ML VIAL IM/IV SCH (12:00)
[2017-07-03] MEDS: Metoclopramide HCl 10 MG/2 ML VIAL IVP SCH ×2 (13:59→21:01)
[2017-07-03] MEDS: Dextrose 5 %-0.45 % NaCl 1,000 ML IV SCH (13:59)
[2017-07-03 16:31] LABS: Anion Gap 12 mmol/L (10-20); BUN (Urea Nitrogen) 4 mg/dL (8.4-25.7); Calc. Creatinine Clearance 131 mL/min (70-130); Calcium 8.6 mg/dL (7.8-10.44); Carbon Dioxide 22 mmol/L (22-29); Chloride 110 mmol/L (98-107); Estimated GFR-MDRD Greater than 90
[2017-07-03 16:34] LABS: Band 5 % (5-11); Hematocrit 30.1 % (42.0-52.0); Hypochromia SLIGHT = 6-15 cells (100X) (0-5/hpf); Mean Platelet Volume 7.2 fL (7.4-10.4); Neutrophil 89 % (42-75); Red Blood Cell (RBC) Count 3.64 mill/uL (4.70-6.10); White Blood Cell (WBC) Count 10.8 thou/uL (4.8-10.8)
[2017-07-04] MEDS: Ketorolac Tromethamine 30 MG/ML VIAL IVP SCH ×5 (00:12→23:29)
[2017-07-04] MEDS: Ondansetron HCl/PF 4 MG/2 ML Vial IVP SCH ×2 (00:12→06:49)
[2017-07-04] MEDS: Acetaminophen 500 MG TAB PO SCH ×4 (03:49→19:26)
[2017-07-04] MEDS: Dextrose 5 %-0.45 % NaCl 1,000 ML IV SCH ×2 (04:59→18:16)
[2017-07-04] MEDS: Metoclopramide HCl 10 MG/2 ML VIAL IVP SCH ×3 (05:00→21:04)
[2017-07-04] MEDS: Famotidine/PF 20 mg/2ml Vial SLOW IVP SCH ×2 (08:00→21:04)
[2017-07-04] MEDS: Enoxaparin Sodium 40 MG/0.4 ML SYRINGE SC SCH ×2 (08:00→08:14)
--- NOTE | 2017-07-04 09:04 | PDOC.FM ---
- Subjective Subjective: No acute events overnight. No emesis, per nurse. Pt continues to not tolerate po. Per cm, pts family wishes to have pt return to halfway. - Objective Vital Signs & Weight: Weight Admit Weight 53.07 kg Weight 53.07 kg I&O: 07/03/17 07/04/17 07/05/17 06:59 06:59 06:59 Intake Total 100 1140 Output Total 1350 2100 Balance -1250 -960 Result Diagrams: 07/03/17 15:52 07/03/17 15:52 <Nando Barajas - Last Filed: 07/04/17 09:02> - Objective Vital Signs & Weight: Vital Signs (12 hours) Temp Pulse Resp BP Pulse Ox 07/04/17 08:00 98.3 F 79 18 100/64 95 Weight Admit Weight 117 lb Weight 117 lb I&O: 07/03/17 07/04/17 07/05/17 06:59 06:59 06:59 Intake Total 100 1140 Output Total 1350 2100 Balance -1250 -960 Result Diagrams: 07/03/17 15:52 07/03/17 15:52 <Lon Pina - Last Filed: 07/04/17 11:19> Phys Exam - Physical Examination Constitutional: NAD HEENT: PERRLA, sclera anicteric Neck: no nodes, no JVD Respiratory: no wheezing, no rales, no rhonchi, clear to auscultation bilateral Cardiovascular: RRR, no significant murmur, no rub Gastrointestinal: positive bowel sounds ttp, guarding, no rebound, mild distension Musculoskeletal: no edema, pulses present Neurological: non-focal, normal sensation, moves all 4 limbs <Nando Barajas - Last Filed: 07/04/17 09:02> Dx/Plan (1) Colonic mass Code(s): K63.9 - DISEASE OF INTESTINE, UNSPECIFIED Status: Acute (2) Large bowel obstruction Code(s): K56.609 - UNSP INTESTNL OBST, UNSP TO PARTIAL VERSUS COMPLETE OBST Status: Acute (3) Anemia Code(s): D64.9 - ANEMIA, UNSPECIFIED Status: Acute (4) Hypokalemia Code(s): E87.6 - HYPOKALEMIA Status: Acute - Plan Plan: this is likely adenocarcinoma with ct evidence of carcinomatosis pt still not tolerating po, will attempt to advance diet/ encourage po intake vss, wnl case management and palliative to speak with family today regarding goals of care pt refusing blood draws and medications <Nando Barajas - Last Filed: 07/04/17 09:02> Attending Addendum - Attending Addendum I personally evaluated the patient and discussed the management with Dr. Barajas I agree with the History, Examination, Assessment and Plan documented above with any addition or exceptions noted below. He is still complaining of pain and not eating. We will try Marinol and Reglan. We will send out once we can coordinate disposition with the sisters. I think Hospice is his only realistic option given advanced disease. <Lon Pina - Last Filed: 07/04/17 11:19>
[2017-07-04] MEDS ORDERED: Morphine 4 MG/ML Carpuject SLOW IVP ONE (12:06)
[2017-07-04] MEDS ORDERED: Morphine 4 MG/ML VIAL IV SCH (12:30)
[2017-07-04] MEDS ORDERED: Dronabinol 2.5 MG CAP PO SCH ×4 (13:45→16:30)
[2017-07-04 16:43] LABS: Anion Gap 10 mmol/L (10-20); BUN (Urea Nitrogen) Less than 4 mg/dL (8.4-25.7); Calc. Creatinine Clearance 124 mL/min (70-130); Calcium 8.8 mg/dL (7.8-10.44); Carbon Dioxide 25 mmol/L (22-29); Chloride 105 mmol/L (98-107); Estimated GFR-MDRD Greater than 90
[2017-07-04 16:48] LABS: Acanthocytes SLIGHT = 1-5 cells (100X) (None Seen); Band 3 % (5-11); Hematocrit 32.6 % (42.0-52.0); Hypochromia SLIGHT = 6-15 cells (100X) (0-5/hpf); Mean Platelet Volume 6.9 fL (7.4-10.4); Neutrophil 88 % (42-75); Red Blood Cell (RBC) Count 3.94 mill/uL (4.70-6.10); White Blood Cell (WBC) Count 12.7 thou/uL (4.8-10.8)
[2017-07-04] MEDS ORDERED: Morphine PF 1 MG/ML SYR IVP SCH (18:15)
--- NOTE | 2017-07-04 18:19 | PRG ---
DATE OF SERVICE: 07/04/2017 SUBJECTIVE: The patient has continued to have poor p.o. intake. He does not complain of pain to me this a.m. His colostomy continues to put out liquid stool. OBJECTIVE: VITAL SIGNS: Temperature 98.3, pulse 79, respiration 18, O2 sat 95%, blood pressure 100/64. GENERAL: Resting in bed in no acute distress. PULMONARY: Normal work of breathing. Symmetric rise. GASTROINTESTINAL: Abdomen is soft with mild tenderness to palpation. Ostomy is pink. There is liq uid stool. MUSCULOSKELETAL: Moves all extremities x4. NEUROLOGIC: No focal deficit noted. LABORATORY DATA: WBC 12.7, hemoglobin 10.1, hematocrit 32.6, platelet count 419. Sodium 137, potas sium 3.4, chloride 105, carbon dioxide 25, BUN 4, creatinine 0.53. ASSESSMENT: 1. Colonic mass, suspicious colon neoplasm. 2. Large bowel obstruction secondary to above. 3. Postop day #5 status post mini laparotomy with loop transverse colostomy. 4. Postoperative ileus, nausea and vomiting, resolved. 5. Intellectual disability. PLAN: Slowly advance diet as tolerated. We will advance to full liquid diet this a.m. Pain manage ment per primary. Electrolyte replacement per primary. Encourage p.o. intake. Encourage mobility. Patient discussed with trauma attending.
[2017-07-04] MEDS ORDERED: Lorazepam 2 MG/ML VIAL SLOW IVP SCH (18:30)
[2017-07-04] MEDS: Morphine 4 MG/ML VIAL SLOW IVP PRN (22:01)
[2017-07-05] MEDS: Acetaminophen 500 MG TAB PO SCH ×4 (03:16→20:36)
[2017-07-05] MEDS: Ketorolac Tromethamine 30 MG/ML VIAL IVP SCH (05:24)
[2017-07-05] MEDS: Metoclopramide HCl 10 MG/2 ML VIAL IVP SCH ×3 (05:24→20:37)
[2017-07-05] MEDS: Dextrose 5 %-0.45 % NaCl 1,000 ML IV SCH ×2 (05:26→22:33)
[2017-07-05] MEDS ORDERED: Potassium Chloride 40 MEQ in Sodium Chloride 0.9% 500 ML IVPB SCH (06:30)
--- NOTE | 2017-07-05 07:43 | PDOC.FM ---
- Subjective Subjective: no aucte events overnight. Pt slept well throughout night. Complains of abdominal pain. Still not tolerating po. Will be going to [facility] with hospice care and palliatuve measures. Orders should be in place today. - Objective Vital Signs & Weight: Vital Signs (12 hours) Temp Pulse Resp BP Pulse Ox 07/04/17 20:00 98.2 F 84 20 07/04/17 19:47 98.2 F 84 20 111/74 96 Weight Admit Weight 53.07 kg Weight 53.07 kg I&O: 07/04/17 07/05/17 07/06/17 06:59 06:59 06:59 Intake Total 1140 2210 Output Total 2100 1790 Balance -960 420 Result Diagrams: 07/04/17 16:15 07/04/17 16:14 <Nando Barajas - Last Filed: 07/05/17 07:41> - Objective Vital Signs & Weight: Vital Signs (12 hours) Temp Pulse Resp BP Pulse Ox 07/05/17 08:00 98.5 F 104 H 18 117/71 94 L Weight Admit Weight 117 lb Weight 117 lb I&O: 07/04/17 07/05/17 07/06/17 06:59 06:59 06:59 Intake Total 1140 2210 Output Total 2100 1790 Balance -960 420 Result Diagrams: 07/04/17 16:15 07/04/17 16:14 <Lon Pina - Last Filed: 07/05/17 10:57> Phys Exam - Physical Examination Constitutional: NAD HEENT: PERRLA, sclera anicteric Neck: no nodes, no JVD Respiratory: no wheezing, no rales, no rhonchi, clear to auscultation bilateral Cardiovascular: RRR, no significant murmur, no rub Gastrointestinal: soft, no distention, positive bowel sounds mild ttp Musculoskeletal: no edema, pulses present Neurological: non-focal, normal sensation, moves all 4 limbs <Nando Barajas - Last Filed: 07/05/17 07:41> Dx/Plan (1) Colonic mass Code(s): K63.9 - DISEASE OF INTESTINE, UNSPECIFIED Status: Acute (2) Large bowel obstruction Code(s): K56.609 - UNSP INTESTNL OBST, UNSP TO PARTIAL VERSUS COMPLETE OBST Status: Acute (3) Anemia Code(s): D64.9 - ANEMIA, UNSPECIFIED Status: Acute (4) Hypokalemia Code(s): E87.6 - HYPOKALEMIA Status: Acute - Plan Plan: -pt spiked wbc and platelets last night, started on zosyn -will continue until placement finaled, order UA. DC mccauley today encourage po intake continue comfort measures potassium replaced pt codes status changed to DNR <Nando Barajas - Last Filed: 07/05/17 07:41> Attending Addendum - Attending Addendum I personally evaluated the patient and discussed the management with Dr. Barajas I agree with the History, Examination, Assessment and Plan documented above with any addition or exceptions noted below. No change overnight. He is still not eating and now has increasing white count. He is a hospice patient now. We are looking for placement. We will go with aggressive comfort care, and try Cipro and Flagyl. <Lon Pina - Last Filed: 07/05/17 10:57>
[2017-07-05 07:47] LABS: Bilirubin Negative (Negative); Blood, Urine Small (Negative); Glucose, Urine (Dipstick) Negative (Negative); Ketone, Urine Negative (Negative); Nitrite Negative (Negative); Protein, Urine (Dipstick) Negative (Neg-Trace); Urobilinogen 0.2 mg/dL (0.2-1.0)
[2017-07-05 07:50] LABS: Bacteria/HPF None Seen HPF (None Seen)
[2017-07-05] MEDS: Dronabinol 2.5 MG CAP PO SCH ×2 (08:06→17:28)
[2017-07-05] MEDS: Famotidine/PF 20 mg/2ml Vial SLOW IVP SCH ×2 (08:06→20:37)
[2017-07-05 08:07] LABS: Hyaline Casts/LPF 0-3 HYALINE CAST LPF (0-3 Hyaline); Renal Epithelial 0-3 HPF (0-3); Transitional Epithelial 0-3 HPF (0-3)
[2017-07-05] MEDS: Enoxaparin Sodium 40 MG/0.4 ML SYRINGE SC SCH (08:07)
[2017-07-05] MEDS: Morphine 4 MG/ML VIAL SLOW IVP PRN ×4 (08:07→20:37)
[2017-07-05] MEDS: metroNIDAZOLE 500 MG TAB PO SCH ×3 (09:47→20:37)
[2017-07-05] MEDS: Lorazepam 2 MG/ML VIAL SLOW IVP PRN ×3 (09:49→23:08)
[2017-07-05] MEDS ORDERED: Piperacillin/Tazobactam 3.375 GM in Sodium Chloride 0.9% 100 ML IVPB SCH (12:00)
[2017-07-05] MEDS ORDERED: Piperacillin/Tazobactam 2.25 GM in Sodium Chloride 0.9% 100 ML IVPB SCH (14:00)
--- NOTE | 2017-07-05 14:01 | PRG ---
DATE OF SERVICE: 07/05/2017 SUBJECTIVE: Mr. Herman Sage is a 52-year-old male, who is postop day 6 status post mini laparotomy with loop transverse colostomy. The patient is somewhat drowsy this a.m. He recently received mor phine IV for pain. He continues to have poor p.o. intake. Ostomy continues to function. Per docum entation, patient's family has elected to discharge the patient to assisted with hospice care an d palliative measures. There were no acute overnight events. OBJECTIVE: VITAL SIGNS: Temperature 98.5, pulse 104, respiration rate 18, O2 sat 94% on room air, and blood pr essure 117/71. GENERAL: Resting in bed in no acute distress. PULMONARY: Normal work of breathing. Symmetric rise. LUNGS: Clear to auscultation bilaterally. CARDIOVASCULAR: Regular rate and rhythm, no obvious murmurs, rubs or gallops. GASTROINTESTINAL: Abdomen is soft with no obvious tenderness to palpation. Ostomy is pink. There is liquid stool in ostomy bag. MUSCULOSKELETAL: Moves all extremities x4. NEUROLOGIC: No focal deficit noted. Patient is intellectually disabled. LABORATORY FINDINGS: No new laboratory findings this a.m. RADIOGRAPHIC FINDINGS: No new radiographic findings this a.m. ASSESSMENT: 1. Colonic mass suspicious for colonic neoplasm. 2. Large bowel obstruction secondary to above. 3. Postop day #6 status post mini laparotomy with loop transverse colostomy. 4. Postoperative ileus, nausea and vomiting, resolved. 5. Intellectual disability. 6. Poor p.o. intake. PLAN: Continue Marinol for appetite stimulation. Palliative and hospice measures per primary team. The patient has been discussed with attending. We will not advance diet at this time given the danielle santos's limited mobility and recent ileus. If he continues to tolerate the full liquid diet for the next 24-48 hours, may consider advancing to regular diet. Continue pain management as ordered. We will follow. All questions were answered at the time of this dictation.
[2017-07-05 14:21] LABS: Anion Gap 13 mmol/L (10-20); BUN (Urea Nitrogen) Less than 4 mg/dL (8.4-25.7); Calc. Creatinine Clearance 126 mL/min (70-130); Calcium 9.1 mg/dL (7.8-10.44); Carbon Dioxide 24 mmol/L (22-29); Chloride 106 mmol/L (98-107); Estimated GFR-MDRD Greater than 90
[2017-07-05 14:23] LABS: Anisocytosis SLIGHT = 6-15 cells (100X) (0-5/hpf); Band 4 % (5-11); Hematocrit 32.6 % (42.0-52.0); Hypochromia SLIGHT = 6-15 cells (100X) (0-5/hpf); Mean Platelet Volume 7.1 fL (7.4-10.4); Neutrophil 77 % (42-75); Red Blood Cell (RBC) Count 3.92 mill/uL (4.70-6.10); White Blood Cell (WBC) Count 13.1 thou/uL (4.8-10.8)
[2017-07-05] MEDS: Ciprofloxacin 500 MG TAB PO SCH (20:36)
[2017-07-05] MEDS ORDERED: Megestrol Acetate 40 MG TAB PO SCH (21:00)
[2017-07-06] MEDS: Morphine 4 MG/ML VIAL SLOW IVP PRN ×7 (00:31→21:05)
[2017-07-06] MEDS: Acetaminophen 500 MG TAB PO SCH ×4 (03:38→21:04)
[2017-07-06] MEDS: Metoclopramide HCl 10 MG/2 ML VIAL IVP SCH ×3 (04:21→21:05)
[2017-07-06] MEDS: Ciprofloxacin 500 MG TAB PO SCH (04:21)
--- NOTE | 2017-07-06 07:37 | PDOC.FM ---
- Subjective Subjective: Pt had no acute events overnight. Per his sister, his pain has been more controlled and he was able to eat ensure as well as some water yesterday without nausea/emesis. - Objective Vital Signs & Weight: Vital Signs (12 hours) Temp Pulse Resp BP Pulse Ox 07/05/17 20:50 99.0 F 102 H 16 104/69 92 L 07/05/17 20:00 99.0 F 102 H 16 Weight Admit Weight 53.07 kg Weight 53.07 kg I&O: 07/05/17 07/06/17 07/07/17 06:59 06:59 06:59 Intake Total 2210 1140 Output Total 1790 800 Balance 420 340 Result Diagrams: 07/05/17 13:45 07/05/17 13:45 <Nando Barajas - Last Filed: 07/06/17 07:35> - Objective Vital Signs & Weight: Vital Signs (12 hours) Temp Pulse Resp BP Pulse Ox 07/06/17 08:48 100.2 F H 112 H 18 124/80 92 L Weight Admit Weight 117 lb Weight 117 lb I&O: 07/05/17 07/06/17 07/07/17 06:59 06:59 06:59 Intake Total 2210 1140 Output Total 1790 800 Balance 420 340 Result Diagrams: 07/05/17 13:45 07/05/17 13:45 <Lon Pina - Last Filed: 07/06/17 10:46> Phys Exam - Physical Examination mild distress HEENT: PERRLA dry mucus membranes Neck: no nodes, no JVD Respiratory: no wheezing, no rales, no rhonchi, clear to auscultation bilateral Cardiovascular: RRR, no significant murmur, no rub Gastrointestinal: soft, no distention, positive bowel sounds mild ttp Musculoskeletal: no edema, pulses present Neurological: non-focal, moves all 4 limbs Skin: no rash <Nando Barajas - Last Filed: 07/06/17 07:35> Dx/Plan (1) Colonic mass Code(s): K63.9 - DISEASE OF INTESTINE, UNSPECIFIED Status: Acute (2) Large bowel obstruction Code(s): K56.609 - UNSP INTESTNL OBST, UNSP TO PARTIAL VERSUS COMPLETE OBST Status: Acute (3) Anemia Code(s): D64.9 - ANEMIA, UNSPECIFIED Status: Acute (4) Hypokalemia Code(s): E87.6 - HYPOKALEMIA Status: Acute - Plan Plan: pt has persistent white count, discussed goals of care with daughter. Will continue oral abx for now. DC am blood draws and monitor vitals only. Hopefully , having sister at bedside will improve po intake. We will add morphine 2mg q2hr for breakthrough pain. Pt will be going to senior living with [facility], pending transfer. Continue appetite stimulating medication as well as scheduled morphine, tylenol. Resume toradol scheduled. Encourage ambulation. Pt refuses to have mccauley removed. <Nando Barajas - Last Filed: 07/06/17 07:35> Attending Addendum - Attending Addendum I personally evaluated the patient and discussed the management with Dr. Barajas I agree with the History, Examination, Assessment and Plan documented above. <Lon Pina - Last Filed: 07/06/17 10:46>
[2017-07-06] MEDS: Dronabinol 2.5 MG CAP PO SCH ×2 (09:53→17:28)
[2017-07-06] MEDS: metroNIDAZOLE 500 MG TAB PO SCH (09:53)
[2017-07-06] MEDS: Famotidine/PF 20 mg/2ml Vial SLOW IVP SCH ×2 (10:03→21:05)
[2017-07-06] MEDS: Enoxaparin Sodium 40 MG/0.4 ML SYRINGE SC SCH (10:03)
[2017-07-06] MEDS ORDERED: Piperacillin/Tazobactam 2.25 GM in Sodium Chloride 0.9% 100 ML IVPB SCH ×2 (11:00→22:00)
[2017-07-06] MEDS: Lorazepam 2 MG/ML VIAL SLOW IVP PRN ×2 (11:26→23:37)
[2017-07-06] MEDS: Ketorolac Tromethamine 30 MG/ML VIAL IVP SCH ×3 (11:26→23:38)
[2017-07-06] MEDS: Dextrose 5 %-0.45 % NaCl 1,000 ML IV SCH ×2 (11:27→13:54)
--- NOTE | 2017-07-06 11:36 | CT ---
CT OF THE ABDOMEN AND PELVIS WITH CONTRAST: COMPARISON: 06/29/17. HISTORY: Status post colectomy with abdominal pain. TECHNIQUE: Multiple contiguous axial images were obtained in a CT of the abdomen and pelvis with contrast. Cor onal reformats were performed. FINDINGS: There are stable hypodensities in the bilateral kidneys measuring up to 1.7 cm in size which represe nt cysts. There are stable nonobstructing calcifications in the right kidney. There is a small amount of free fluid in the abdomen. There is thickening of the small bowel mesent xander and nodularity, particularly in the left upper quadrant of the abdomen. There is a persistent m ass in the left upper quadrant of the abdomen measuring approximately 5.8 cm in size. In the interi m, there are small bowel loops that are seen in the midline of the abdomen and appear to course exte rnal to the patient, likely an ostomy. No significant distention of small bowel or large bowel loop s is seen on today's examination. Louie catheter decompresses the urinary bladder. There are enlarged retroperitoneal lymph nodes measuring up to 2.7 cm in size. These lymph nodes be come much more confluent in the region of the middle arteries. The gallbladder is distended. The liver, adrenal glands, spleen, and pancreas are unremarkable. IMPRESSION: 1. Interval postsurgical changes secondary to diverting ostomy without evidence of obstruction on t he current exam. A small amount of free fluid in the abdomen and pelvis is seen. 2. Persistent left upper quadrant/mesenteric masses and retroperitoneal masses. 3. Bilateral renal cysts. 4. Nonobstructing right renal calcification. POS: [facility]
--- NOTE | 2017-07-06 12:47 | RAD ---
SINGLE VIEW OF THE CHEST: COMPARISON: 06/29/17. HISTORY: Fever. FINDINGS: A single view of the chest shows a normal-size cardiomediastinal silhouette. There are small to mod erate bilateral pleural effusions. These have developed since the prior examination. IMPRESSION: Bilateral pleural effusions. POS: [facility]
[2017-07-06] MEDS: Piperacillin/Tazobactam 2.25 GM in Sodium Chloride 0.9% 100 ML IVPB SCH ×2 (13:49→21:05)
[2017-07-06] MEDS ORDERED: ISOVUE-370 76%-LOCM 1 ML ONE (16:05)
--- NOTE | 2017-07-06 16:52 | PRG ---
DATE OF SERVICE: 07/06/2017 SUBJECTIVE: Herman Sage is a 52-year-old male postop day #7 status post mini laparotomy with loop transverse colostomy. The patient is more awake this a.m. He has increased pain. Overnight, he nuñez s developed a fever with a T-max of 100.2. He is tachycardic into the one-teens. He continues to h ave poor p.o. intake with complaints of nausea; however, there has been no vomiting. Ostomy continu es to have liquid stool output. The patient's family is now at bedside and p.o. intake is starting to increase. OBJECTIVE: VITAL SIGNS: Temperature 100.2, pulse 112, respiration 18, O2 sat 92% on room air, blood pressure 1 24/80. GENERAL: Resting in bed in no acute distress. PULMONARY: Normal work of breathing. LUNGS: Symmetric rise. CARDIOVASCULAR: Tachycardic. GASTROINTESTINAL: Abdomen is with generalized tenderness, but soft. Ostomy is pink. There is liqu id stool in ostomy bag. MUSCULOSKELETAL: Moves all extremities x4. NEUROLOGIC: No focal deficit noted. Patient is intellectually disabled. LABORATORY FINDINGS: WBC 13.1, hemoglobin 10.1, hematocrit 32.6, platelet count 477, 77% neutrophil s with 4% bands. Sodium 139, potassium 3.8, chloride 106, carbon dioxide 24, BUN less than 4, creat inine 0.52, glucose 99. RADIOGRAPHIC FINDINGS: No new radiographic findings at this time. ASSESSMENT: 1. Colonic mass suspicious for neoplasm. 2. Bowel obstruction secondary to above. 3. Postop day #7 status post mini laparotomy with loop transverse colostomy. 4. Postoperative ileus, nausea and vomiting, resolved. 5. Intellectual disability. 6. Poor p.o. intake. 7. Fever with tachycardia and leukocytosis. PLAN: Continue supportive care as ordered. Urinalysis has been performed and was unremarkable. We will add blood cultures, chest x-ray and CT of the abdomen and pelvis as patient is on antibiotics and no source for infection has been found at this time. Increase patient's maintenance fluids seco ndary to fever and insensible loss. Continue full liquid diet for now. Follow ostomy output. Diana ent has been discussed with trauma/general surgery attending. All questions were answered at the ti me of this dictation.
[2017-07-07] MEDS: Morphine 4 MG/ML VIAL SLOW IVP PRN ×8 (00:35→15:53)
[2017-07-07] MEDS: Dextrose 5 %-0.45 % NaCl 1,000 ML IV SCH ×3 (00:40→11:10)
[2017-07-07] MEDS: Acetaminophen 500 MG TAB PO SCH ×3 (03:56→15:10)
[2017-07-07] MEDS: Piperacillin/Tazobactam 2.25 GM in Sodium Chloride 0.9% 100 ML IVPB SCH ×2 (04:15→11:17)
[2017-07-07] MEDS: Metoclopramide HCl 10 MG/2 ML VIAL IVP SCH ×2 (05:46→14:19)
[2017-07-07] MEDS: Ketorolac Tromethamine 30 MG/ML VIAL IVP SCH ×2 (05:46→11:13)
[2017-07-07] MEDS: Famotidine/PF 20 mg/2ml Vial SLOW IVP SCH (08:02)
--- NOTE | 2017-07-07 09:00 | PDOC.FM ---
- Subjective Subjective: No acute events overnight. Pt still reports abdominal pain and not having much po intake. Per nurse, he is refusing many oral medications, does not allow for his mccauley to be d/cd and has refuse blood draws previously. The decision has been made for hospice and custodial care, with possible transfer to custodial today. - Objective Vital Signs & Weight: Vital Signs (12 hours) Temp Pulse Resp BP Pulse Ox 07/07/17 08:00 97.2 F L 98 16 100/62 92 L 07/07/17 04:29 98.2 F 115 H 20 132/79 97 Weight Admit Weight 53.07 kg Weight 53.07 kg I&O: 07/06/17 07/07/17 07/08/17 06:59 06:59 06:59 Intake Total 1140 1740 Output Total 800 1260 Balance 340 480 Result Diagrams: 07/05/17 13:45 07/05/17 13:45 <Nando Barajas - Last Filed: 07/07/17 08:58> - Objective Vital Signs & Weight: Vital Signs (12 hours) Temp Pulse Resp BP Pulse Ox 07/07/17 11:09 99.2 F 114 H 18 112/66 94 L 07/07/17 08:00 97.2 F L 98 16 100/62 92 L 07/07/17 04:29 98.2 F 115 H 20 132/79 97 Weight Admit Weight 53.07 kg Weight 53.07 kg I&O: 07/06/17 07/07/17 07/08/17 06:59 06:59 06:59 Intake Total 1140 1740 Output Total 800 1260 Balance 340 480 Result Diagrams: 07/05/17 13:45 07/05/17 13:45 <Luis Pepe - Last Filed: 07/07/17 12:40> Phys Exam - Physical Examination mild distress HEENT: sclera anicteric Neck: no nodes, no JVD Respiratory: no wheezing, no rales, no rhonchi diminished bases Cardiovascular: RRR, no significant murmur, no rub Gastrointestinal: soft, no distention, positive bowel sounds no BS left UQ and LQ, mildly ttp Musculoskeletal: no edema, pulses present Neurological: non-focal, moves all 4 limbs <Nando Barajas - Last Filed: 07/07/17 08:58> Dx/Plan (1) Colonic mass Code(s): K63.9 - DISEASE OF INTESTINE, UNSPECIFIED Status: Acute (2) Large bowel obstruction Code(s): K56.609 - UNSP INTESTNL OBST, UNSP TO PARTIAL VERSUS COMPLETE OBST Status: Acute (3) Anemia Code(s): D64.9 - ANEMIA, UNSPECIFIED Status: Acute (4) Hypokalemia Code(s): E87.6 - HYPOKALEMIA Status: Acute - Plan Plan: the family has decided on palliative care and hospice and he is awaiting transfer to the custodial where he was a prior resident blood cultures are negative so far, urine negative, no evidence of abd infection , no evidence of pneumonia zosyn will be dc'd. Pt still has poor po intake, at this point i dont believe pt will tolerate tube feeds or placement of line for tpn, but remains a consideration. His persistent abd pain is likely 2/2 his significant intrabdominal disease vs post op pain. Continue with comfort care measures and goals of care will be maximizing comfort. Possible transfer to custodial for palliative and hospice care <Nando Barajas - Last Filed: 07/07/17 08:58> Attending Addendum - Attending Addendum I personally evaluated the patient and discussed the management with Dr. Barajas. I agree with the History, Examination, Assessment and Plan documented above with any addition or exceptions noted below. Patient stable this morning. He is resting comfortably. His family has decided to go Hospice and palliative care route at [facility], which is appropriate for his current condition. His appetite is somewhat improved with Marinol and we will continue that. Advised that no invasive interventions will be done for feeding such as TPN or NG tube placement. Will allow for comfort feeds. There was initially some concern for infection, though urine clear, CXR NAD, and CT scan shows no major issues. We will discontinue abx at this time. Patient has been accepted at [facility] and he will be transferred there today. <Luis Pepe - Last Filed: 07/07/17 12:40>
[2017-07-07] MEDS: Enoxaparin Sodium 40 MG/0.4 ML SYRINGE SC SCH (09:33)
[2017-07-07] MEDS: Dronabinol 2.5 MG CAP PO SCH ×2 (09:33→16:29)
--- NOTE | 2017-07-07 11:23 | PRG-2 ---
DATE OF SERVICE: 07/07/2017 ATTENDING PHYSICIAN: Dr. Urbano Arora SUBJECTIVE: This is a 52-year-old man postop day #8 status post mini laparotomy with loop transverse colostomy. The patient has been afebrile within the last 24 hours. He is lying in bed awake. The patient continues to have episodes of tachycardia. He continues to have poor p.o. intake with complaints of nausea; however, there has been no vomiting. Ostomy continues to have liquid stool output. The patient has been accepted to [facility]. OBJECTIVE: VITAL SIGNS: Temperature 98.2 degrees Fahrenheit, blood pressure 132/79, respirations 20. Oxygen saturation 97% on room air. Pulse 115. GENERAL: Resting in bed in no acute distress. PULMONARY: Normal work of breathing. Symmetric rise. CARDIOVASCULAR: Tachycardic. GASTROINTESTINAL: Abdomen with generalized tenderness, but is soft. Ostomy is pink. There is liquid stool in ostomy bag. Large colonic mass palpated in the left quadrant. MUSCULOSKELETAL: Moves all 4 extremities. NEUROLOGIC: No focal deficits noted. The patient is intellectually disabled. LABORATORY FINDINGS: There are no labs or images to report on this morning. Chest x-ray was performed yesterday which did show bilateral pleural effusions. Additionally, the abdomen and pelvis CT was performed which was negative for any obstruction or free fluid. ASSESSMENT: 1. Colonic mass suspicious for neoplasm. 2. Bowel obstruction secondary to above. 3. Postop day #8 status post mini laparotomy with loop transverse colostomy. 4. Postoperative ileus, nausea, and vomiting, resolved. 5. Intellectual disability. 6. Poor p.o. intake. 7. Fever, tachycardia, and leukocytosis. PLAN: Continue supportive care. The patient has been accepted to [facility]. From a surgical standpoint, the patient is stable for discharge to Hospice facility. Recommend p.o. intake as tolerated. Diet as desired by patient. The patient would benefit from palliative measures at this time. Agree with hospice decision. Surgery team will sign off at this time. Please contact us if you have any questions or concerns regarding the patient's care. The patient was seen and evaluated by Dr. Arora at bedside. [facility]
[2017-07-07] MEDS: Lorazepam 2 MG/ML VIAL SLOW IVP PRN (13:04)
--- NOTE | 2017-07-07 13:52 | PRG ---
DATE OF SERVICE: 07/07/2017 SUBJECTIVE: Mr. Sage's symptoms are slightly improved today, but still complaining of bloating a nd diffuse abdominal pain. PHYSICAL EXAMINATION: VITAL SIGNS: He is afebrile and his vital signs are stable. ABDOMEN: Soft but distended. He has air and stool in his colostomy bag. ASSESSMENT: Metastatic colon cancer with obstruction, status post palliative loop colostomy proxima l by Dr. Spencer. PLAN: Home with hospice. Unfortunately, I think most of his pain and bloating is secondary to this metastatic process.
[2017-07-07 16:04] VITALS: BP 97/62; TEMP 98.9
== END 2017-07-07 16:46 | disposition hospice, inpatient (51) | DRG 330 ==
LOC: ERS 23:54 → T4-A 06-29 03:32
PROVIDERS: ADMIT Family Medicine; ATTEND Family Medicine
PROC: 0D1L0Z4 Bypass Transverse Colon to Cutaneous, Open Approach (ICD-10-PCS; principal; 2017-06-29)
DX: C18.9 Malignant neoplasm of colon, unspecified (principal); C78.6 Secondary malignant neoplasm of retroperitoneum and peritoneum; R64 Cachexia; E44.0 Moderate protein-calorie malnutrition; K56.7 Ileus, unspecified; E83.52 Hypercalcemia; B18.1 Chronic viral hepatitis B without delta-agent; Z68.1 Body mass index [BMI] 19.9 or less, adult; E78.5 Hyperlipidemia, unspecified; Z86.19 Personal history of other infectious and parasitic diseases; F17.290 Nicotine dependence, other tobacco product, uncomplicated; F71 Moderate intellectual disabilities; Z51.5 Encounter for palliative care; E87.6 Hypokalemia; H54.7 Unspecified visual loss; D64.9 Anemia, unspecified; Z66 Do not resuscitate
CPT/HCPCS: 36415; 36416; 51702; 71010; 74018; 74177; 80048; 80053; 81003; 81015; 82378; 83605; 83735; 85025; 85610; 85730; 86850; 86900; 86901; 87040; 87086; 93005; 96365; 96375; A4216; G8978-GP-CJ; G8979-GP-CI; G8987-GO-CN; G8988-GO-CL; J0696; J1170; J1650; J1885; J1956; J2001; J2060; J2270; J2274; J2405; J2543; J2550; J2704; J2765; J3010; J3370; J3475; J3480; J7050; Q0167; S0028